=== PATIENT | male | born 1975 | race Hispanic/Latino ===

== ENCOUNTER 2019-10-01 20:56 | Emergency (ER) | payer SELFPAY ==
[2019-10-01] MEDS ORDERED: KETOROLAC TROMETHAMINE 30MG/ML ONE (21:42)
[2019-10-01] MEDS ORDERED: ONDANSETRON HCL 4 MG/2 ML VIAL ONE (21:42)
== END 2019-10-01 23:31 ==
LOC: EDH 20:56
DX: N20.1 Calculus of ureter (principal); N23 Unspecified renal colic; R11.2 Nausea with vomiting, unspecified; Z87.891 Personal history of nicotine dependence
CPT/HCPCS: 36415; 74176; 80053; 81001; 83690; 85025; 96361; 96374; 96375; 99284; J1885; J2405

== ENCOUNTER 2019-10-02 18:23 | Observation (INO) | payer OTHER, SELFPAY ==
[~2019-10-02] VITALS: Ht 182.9 cm; Wt 96.6 kg
[2019-10-02] VITALS (19 sets, daily range): BP systolic 114–132; BP diastolic 68–91
[2019-10-02] MEDS ORDERED: PROPOFOL 10 MG/ML 20ML VIAL IV ONE (19:03)
[2019-10-02] MEDS ORDERED: MIDAZOLAM HCL 1 MG/ML 2ML VIAL ONE ×2 (19:03→19:51)
[2019-10-02] MEDS ORDERED: LIDOCAINE PF 2% 5ML ABBOJECT ONE (19:03)
[2019-10-02] MEDS ORDERED: ROCURONIUM 10MG/1ML SYR 10 MG/ML ML ONE ×2 (19:04)
[2019-10-02] MEDS ORDERED: ONDANSETRON HCL 4 MG/2 ML VIAL ONE (19:05)
[2019-10-02] MEDS ORDERED: FENTANYL CITRATE PF 50 MCG/1 ML 2ML VIAL ONE (19:07)
[2019-10-02 19:13] LABS: BASOPHILS % (AUTO) 0.5 % (0.0-5.0); EOSINOPHILS % (AUTO) 1.2 % (0.0-8.0); HEMATOCRIT 38.4 % (42-54); LYMPHOCYTES % (AUTO) 21.3 % (21.0-51.0); MEAN CORPUSCULAR HEMOGLOBIN 31.7 pg (27.0-33.0); MEAN CORPUSCULAR HGB CONC 34.6 g/dL (32.0-36.0); MEAN CORPUSCULAR VOLUME 91.6 fL (79-99); MONOCYTES % (AUTO) 12.7 % (3.0-13.0); PLATELET COUNT (AUTO) 156 K/uL (130-400); RED BLOOD CELL COUNT(AUTO) 4.19 MIL/uL (4.50-6.20); RED CELL DISTRIBUTION WIDTH 12.6 % (11.0-15.5); WHITE BLOOD COUNT (AUTO) 12.5 K/uL (4.8-10.8)
[2019-10-02 19:24] LABS: INR 0.99 (0.85-1.15); PARTIAL THROMBOPLASTIN TIME 27.2 SEC (26.3-35.5); PROTHROMBIN TIME 10.7 SEC (9.6-11.6)
[2019-10-02 19:26] LABS: POTASSIUM 3.6 mmol/L (3.5-5.1)
[2019-10-02 19:30] LABS: ALBUMIN 3.6 g/dL (3.5-5.0); BILIRUBIN,DIRECT 0.1 mg/dL (0.0-0.3); BILIRUBIN,TOTAL 0.4 mg/dL (0.2-1.0); TOTAL PROTEIN, SERUM 7.3 g/dL (6.0-8.3)
[2019-10-02] MEDS ORDERED: IOHEXOL-350 50ML VIAL IV ONE (19:34)
[2019-10-02] MEDS: CEFAZOLIN SODIUM 1 GM VIAL ONE ×2 (19:51→20:00)
[2019-10-02] MEDS ORDERED: GLYCOPYRROLATE 1 MG/5 ML SYRINGE ONE (20:14)
[2019-10-02] MEDS ORDERED: NEOSTIGMINE 5MG/5ML SYR IV ONE (20:14)
[2019-10-02 21:24] LABS: APPEARANCE,URINE CLOUDY (CLEAR); BILIRUBIN,URINE MODERATE (NEGATIVE); COLOR,URINE BROWN (YELLOW); GLUCOSE, URINE (UA) NEGATIVE (NEGATIVE); KETONES,URINE 5 mg/dL (NEGATIVE); LEUKOCYTE ESTERASE ,URINE MODERATE (NEGATIVE); NITRATE,URINE POSITIVE (NEGATIVE); OCCULT BLOOD,URINE LARGE (NEGATIVE); PH,URINE 6.5 (5.0-8.0); PROTEIN,URINE 100 mg/dL (NEGATIVE)
[2019-10-02 21:33] LABS: RBC,URINE TNTC /HPF (0-1)
[2019-10-02 21:34] LABS: AMORPHOUS SEDIMENT,UR Few /LPF (None Seen); BACTERIA,URINE Few /HPF (None Seen); SQUAMOUS EPITHELIAL CELL,UR Rare /HPF (0-2)
[2019-10-02] MEDS ORDERED: KETOROLAC TROMETHAMINE 30MG/ML ONE (21:41)
[2019-10-02] MEDS ORDERED: SODIUM CHLORIDE 0.9% 1000ML 1,000 ML IV SCH (23:00)
[2019-10-02] MEDS ORDERED: MEPERIDINE-PF 75 MG/ML SYG IM PRN (23:00)
[2019-10-02] MEDS ORDERED: ACETAMINOPHEN 325 MG TAB PO PRN (23:00)
[2019-10-02] MEDS ORDERED: ONDANSETRON HCL 4 MG/2 ML VIAL IVP PRN (23:00)
[2019-10-02] MEDS: CEFAZOLIN SODIUM 1 GM VIAL IVP SCH (23:00)
[2019-10-02] MEDS ORDERED: ACETAMINOPHEN-CODEINE 300/30MG TAB PO PRN (23:00)
[2019-10-03 00:18] VITALS: BP 118/73
[2019-10-03 00:48] VITALS: BP 114/70
--- NOTE | 2019-10-03 01:50 | NUR ---
CORINE GASCA, HOSPITALIST. SHE SPOKE WITH THE PATIENT. NO ISSUES NOTED
[2019-10-03 03:36] LABS: BASOPHILS % (AUTO) 0.3 % (0.0-5.0); EOSINOPHILS % (AUTO) 0.1 % (0.0-8.0); HEMATOCRIT 36.2 % (42-54); LYMPHOCYTES % (AUTO) 12.3 % (21.0-51.0); MEAN CORPUSCULAR HEMOGLOBIN 31.4 pg (27.0-33.0); MEAN CORPUSCULAR VOLUME 92.3 fL (79-99); PLATELET COUNT (AUTO) 149 K/uL (130-400); RED BLOOD CELL COUNT(AUTO) 3.92 MIL/uL (4.50-6.20); RED CELL DISTRIBUTION WIDTH 12.9 % (11.0-15.5); WHITE BLOOD COUNT (AUTO) 9.7 K/uL (4.8-10.8)
[2019-10-03] MEDS ORDERED: ONDANSETRON HCL 4 MG/2 ML VIAL IV PRN (03:45)
[2019-10-03] MEDS ORDERED: NITROGLYCERIN 0.4 MG SL TAB SL PRN (03:45)
[2019-10-03] MEDS ORDERED: DIPHENHYDRAMINE HCL 25 MG CAPSULE PO PRN (03:45)
[2019-10-03] MEDS ORDERED: ACETAMINOPHEN 325 MG TAB PO PRN ×2 (03:45)
[2019-10-03 04:00] VITALS: BP 128/79
[2019-10-03 04:02] LABS: ALBUMIN 2.9 g/dL (3.5-5.0); BILIRUBIN,TOTAL 0.3 mg/dL (0.2-1.0); CREATININE 1.4 mg/dL (0.5-1.5); POTASSIUM 4.9 mmol/L (3.5-5.1); TOTAL PROTEIN, SERUM 6.2 g/dL (6.0-8.3)
[2019-10-03] MEDS: CEFAZOLIN SODIUM 1 GM VIAL IVP SCH (05:11)
--- NOTE | 2019-10-03 05:43 | NUR ---
BATHED PATIENT WITH KARIE HAJI. NO ISSUES.
[2019-10-03 06:30] LABS: APPEARANCE,URINE Clear (CLEAR); BILIRUBIN,URINE Negative (NEGATIVE); COLOR,URINE Yellow (YELLOW); GLUCOSE, URINE (UA) Negative (NEGATIVE); KETONES,URINE Negative (NEGATIVE); LEUKOCYTE ESTERASE ,URINE Moderate (NEGATIVE); NITRATE,URINE Negative (NEGATIVE); OCCULT BLOOD,URINE Large (NEGATIVE); PROTEIN,URINE POS 1+ mg/dL (NEGATIVE)
[2019-10-03 06:46] LABS: BACTERIA,URINE Few /HPF (None Seen); RBC,URINE 26-50 /HPF (0-1); SQUAMOUS EPITHELIAL CELL,UR Moderate /HPF (0-2)
[2019-10-03 08:08] VITALS: BP 120/82
[2019-10-03] MEDS ORDERED: CEPH500B PO (08:13)
[2019-10-03] MEDS ORDERED: FAMOTIDINE 20MG TAB 20 MG TAB PO SCH (09:00)
[2019-10-03] MEDS ORDERED: CITRIC ACID/SODIUM CITRATE 30 ML UDCUP PO SCH (09:00)
== END 2019-10-03 08:45 | disposition home or self-care (01) ==
LOC: EDH 18:23 → EDHIP 18:24 → 3AH 21:50
PROVIDERS: ADMIT Urology; ATTEND Urology
DX: N13.6 Pyonephrosis (principal); D49.4 Neoplasm of unspecified behavior of bladder; N17.9 Acute kidney failure, unspecified; Z72.0 Tobacco use
CPT/HCPCS: 36415 ×2; 52234; 52332; 74420; 80048; 80053; 80076; 81001; 85025 ×2; 85610; 85730; 87088; 88307; 96374; 99284; A4344; A4354; A4358; A4649; A4930; A5113; C1758 ×2; C1769 ×2; C2617; G0378 ×7; J0690 ×2; J1885; J2001; J2250 ×2; J2405; J2704; J2710; J3010; J3490; J7030; Q9967

== ENCOUNTER → 2019-10-02 | Outpatient (CLI) | payer SELFPAY | END | disposition home or self-care (01) | LOC: LAB 14:11 | PROVIDERS: ATTEND Urology | DX: N13.39 Other hydronephrosis (principal) ==

== ENCOUNTER → 2019-12-13 | Outpatient (CLI) | payer BC ==
[~2019-12-13] MED LIST: CEPH500B PO
== END | disposition home or self-care (01) ==
LOC: RAH 15:33
PROVIDERS: ATTEND Urology
DX: N20.1 Calculus of ureter (principal); Z96.0 Presence of urogenital implants
CPT/HCPCS: 74018; 76100